=== PATIENT | male | born 1960 | race Two or more races ===

== ENCOUNTER → 2021-02-12 | Outpatient (CLI) | payer OTHER ==
[~2021-02-12] MED LIST: CONTRAST GIVEN. MC PRN; IOHEXOL 240 MG/ML 50ML VIAL. PO ONE; IOHEXOL 300 MG/ML 100ML VIAL. IV ONE
--- NOTE | 2021-02-12 10:52 | RAD ---
EXAM: Abdomen and pelvis CT with intravenous contrast. HISTORY: Right varicocele and hydrocele. Renal mass. TECHNIQUE: Computed tomographic images of the abdomen and pelvis were obtained following the administ ration of intravenous contrast. Multiplanar reformatting was performed. *One or more of the following individualized dose reduction techniques were utilized for this examina tion: 1. Automated exposure control. 2. Adjustment of the mA and/or kV according to patient size. 3. Use of iterative reconstruction technique. COMPARISON: None. FINDINGS: Evaluation of the lower thorax demonstrates right greater than left lower lobe atelectasis there there is no infiltrate or pleural effusion. No suspicious hepatic lesion is seen. There are filling defects within a slightly contracted gallbladder due to suspected tumefactive sludg e or possible solid lesions. There is a tiny proximal duodenal diverticulum. The pancreas, spleen and adrenal glands are unremarkable. There is a 8.2 cm simple appearing left renal cyst. There is also a 2.1 cm simple left renal cyst and 4 mm simple left renal cyst. No solid renal lesion is seen. There is no hydronephrosis. There is no appendicitis. There is no bowel obstruction. There are few distal colonic diverticula. Th e bladder is unremarkable. The prostate is unremarkable. The aorta is normal in caliber. No pathologi dwaine enlarged lymph node is seen. There are degenerative changes throughout the spine. There is no a cute or suspicious osseous finding. IMPRESSION: 1. Filling defects within a slightly contracted gallbladder, possibly due to tumefactive sludge or a solid neoplasm. This can be better characterized with a Doppler sonogram including color Doppler imag ing. 2. Simple appearing left renal cysts measuring up to 8.2 cm. Fall. Vertebral performed for simple cys ts. 3. Few distal colonic diverticula. 4. Note is made that a scrotal sonogram may be useful for better characterization of a reported hydro sarbjit and varicocele. Electronically signed by: Lynette Oscar MD (02/12/2021 10:49 AM) [id number]
== END ==
LOC: CT 12:41
PROVIDERS: ATTEND Family Medicine
DX: N28.1 Cyst of kidney, acquired (principal); K57.30 Diverticulosis of large intestine without perforation or abscess without bleeding; K57.10 Diverticulosis of small intestine without perforation or abscess without bleeding; I86.1 Scrotal varices; N28.89 Other specified disorders of kidney and ureter; K82.0 Obstruction of gallbladder; J98.11 Atelectasis
CPT/HCPCS: 74177; Q9966; Q9967